=== PATIENT | female | born 1940 | race Caucasian/White ===

== ENCOUNTER 2024-11-04 20:15 | Emergency (ER) | payer MEDICARE ==
[~2024-11-04] VITALS: Ht 167.6 cm; Wt 54.9 kg
[2024-11-04] MEDS ORDERED: METOPROLOL TARTRATE 25 MG TABLET ONE (20:54)
[2024-11-04] MEDS: METOPROLOL TARTRATE 25 MG TABLET PO ONE (20:56)
[2024-11-04] MEDS ORDERED: CLON-418 PO (21:22)
[2024-11-04 21:28] VITALS: BP 226/103; TEMP 98.1; O2SAT 97
== END 2024-11-04 21:29 | disposition home or self-care (01) ==
LOC: ER 20:26
DX: I10 Essential (primary) hypertension (principal); Z79.899 Other long term (current) drug therapy